=== PATIENT | female | born 1980 | race Caucasian/White ===

== ENCOUNTER 2020-08-13 12:52 | Outpatient (REF) | payer MEDICAID, SELFPAY | END 2020-08-13 12:53 | disposition home or self-care (01) | LOC: HO.LAB 12:52 | PROVIDERS: Visit Provider Internal Medicine | DX: Z20.822 Contact with and (suspected) exposure to COVID-19 (principal) | CPT/HCPCS: 36415; C9803; U0003; U0005 ==

== ENCOUNTER 2021-03-14 11:54 | Outpatient (REF) | payer MEDICAID, SELFPAY ==
[2021-03-14 12:29] LABS: COVID-19 Test Negative (Negative)
== END 2021-03-14 11:55 | disposition home or self-care (01) ==
LOC: HO.LAB 11:54
PROVIDERS: PCP Internal Medicine; Visit Provider Internal Medicine
DX: Z20.822 Contact with and (suspected) exposure to COVID-19 (principal)
CPT/HCPCS: 36415; 87635; C9803

== ENCOUNTER 2021-07-15 11:22 | Outpatient (REF) | payer MEDICAID, SELFPAY ==
[2021-07-15 13:25] LABS: Binax Internal Control QC Valid; Binax Lot number: 9864; Binax Now Covid-19 Ag Negative (Negative)
== END 2021-07-15 11:23 | disposition home or self-care (01) ==
LOC: HO.LAB 11:22
PROVIDERS: Visit Provider Internal Medicine
DX: Z20.822 Contact with and (suspected) exposure to COVID-19 (principal)
CPT/HCPCS: C9803

== ENCOUNTER 2022-02-23 23:14 | Emergency (ER) | payer MEDICAID, SELFPAY ==
--- NOTE | ~2022-02-23 | XR_ITS ---
EXAMINATION: XR FOOT, LEFT CLINICAL INFORMATION: Swelling and pain COMPARISON: None TECHNIQUE: AP, lateral, and oblique views of the left foot. FINDINGS: Osseous alignment is anatomic. No acute fracture is seen. Dorsal soft tissue swelling is noted overlying the metatarsals. XR/XR foot LT 2V IMPRESSION: Dorsal soft tissue swelling overlying the metatarsals. No acute osseous findings identified.
[2022-02-23 23:58] VITALS: BP 133/87; PULSE 65; RESP 16; TEMP 36.5; O2SAT 96; BMI 33.3
--- NOTE | 2022-02-24 01:24 | ED.LOWEXIN ---
HPI - Extremity Injury (Lower) General Chief Complaint: Extremity Injury, Lower Stated Complaint: foot inj/stubbed toe Time Seen by Provider: 02/24/22 01:20 Source: patient Mode of arrival: ambulatory Limitations: no limitations History of Present Illness HPI Narrative: 41-year-old female came in for evaluation of left foot injury. Patient dropped a chair on her left foot about 10 days ago, been complaining of left foot pain and swelling. Related Data Allergies Allergy/AdvReac Type Severity Reaction Status Date / Time No Known Allergies Allergy Unverified 03/18/20 17:09 [No Known Allergies*] Review of Systems Review of Systems: All other systems are reviewed and are negative Constitutional: Reports as per HPI and Reports no additional constitutional complaints Eyes: Reports as per HPI and Reports no additional eye complaints Reports system reviewed and no additional complaints, except as documented Cardiovascular: Reports as per HPI and Reports no additional cardiovascular complaints Respiratory: Reports as per HPI and Reports no additional respiratory complaints Gastrointestinal: Reports as per HPI and Reports no additional gastrointestinal complaints Genitourinary: Reports no additional female genitourinary complaints Musculoskeletal: Reports no additional musculoskeletal complaints Skin/Breast: Reports system reviewed and no additional complaints, except as docu Psychiatric: Reports no additional psychiatric complaints Endocrine: Reports no additional endocrine complaints Hematologic/Lymphatic: Reports no additional hematologic/lymphatic complaints Allergic/Immunologic: Reports no additional allergic/immunologic complaints Reports system reviewed and no additional complaints, except as documented and Reports Abnormal speech present [facility] Social History Social History Advance Directives: No Advance Directives Information Provided: No Physical Exam Vital Signs: Vital Signs: Last Vital Signs Temp 97.7 F 02/23/22 23:58 Pulse 65 02/23/22 23:58 Resp 16 02/23/22 23:58 BP 133/87 02/23/22 23:58 Pulse Ox 96 02/23/22 23:58 O2 Del Method 02/23/22 23:58 BMI result Body Mass Index 33.3 vital signs have been reviewed as appeared to be correct. Blood pressure normal. Heart rate normal. Respiration rate normal. Temperature normal. Oxygen saturation normal. Appearance: Alert. Oriented X3. No acute distress. Head: Normal external exam. Normocephalic. Atraumatic. No Alexis signs noted. No raccoon eyes noted Eyes: PERRLA. EOMI. Conjunctiva and sclera normal. Eyelids normal. ENT: TM's Normal. Pharynx normal. Uvula midline. Moist mucous membranes. No trismus noted. No drooling noted. No muffled voice noted. Neck: Normal inspection. Neck supple. FROM. No adenopathy. Thyroid Normal. No meningeal signs. No neck mass noted. CVS: Normal heart rate and rhythm. Heart sound normal. No murmurs noted. Pulses normal throughout. Respiratory: No respiratory distress. Painless inspiration. Breath sounds normal. No wheezes/rales/rhonchi noted. Chest nontender. No accessory muscle usage noted or decreased air movement noted. Abdomen: Soft and nontender. Bowel sounds normal in all 4 quadrants. No distention noted. No organomegaly noted. No visible injury noted. Back: No CVA tenderness. Full range of motion noted. Skin: Skin warm and dry. Normal skin color. Normal skin turgor. No rashes/lesions/lacerations noted. Extremities: No lower extremity edema. Left foot focal tenderness no step-off, no deformity. Neuro: Oriented X 3. Cranial nerve exam: II-XII are grossly intact No motor deficit. No sensory deficit. Reflexes normal. Course Course Course Narrative: Left foot contusion for 10 days. NSAIDs p.r.n. pain, elevation, rest. MDM - Extremity Injury (Lower) Imaging Data Left foot x-ray: Attestation: I personally reviewed and interpreted this imaging study as follows: Radiologist's impression: Dorsal soft tissue swelling overlying the metatarsals. No acute osseous findings identified. Discharge Plan Discharge Clinical Impression: Contusion of left foot Patient Disposition: Home, Self-Care Instructions: Contusion in Adults (ED) Additional Instructions: take ibuprofen 200 mg tablet every 6 hours if needed for pain ([id number] medication). Referrals: Rosa Do NP [Primary Care Provider] -
[2022-02-24 01:36] VITALS: BP 115/72; PULSE 66; RESP 14; O2SAT 97
--- NOTE | 2022-02-24 01:39 | PC.NURSE ---
pt a&o x3. reports 0 out of 10 pain at time of discharge. patient verbalize understanding of discharge plan. pt provided with discharge packet.
== END 2022-02-24 01:40 | disposition home or self-care (01) ==
PROVIDERS: Emergency Provider Emergency Medicine; PCP Nurse Practitioner Family
DX: S90.122A Contusion of left lesser toe(s) without damage to nail, initial encounter (principal); Y29.XXXA Contact with blunt object, undetermined intent, initial encounter; Y93.9 Activity, unspecified; Y92.9 Unspecified place or not applicable; Y99.9 Unspecified external cause status
CPT/HCPCS: 73620; 99283

== ENCOUNTER 2023-06-29 16:14 | Emergency (ER) | payer MEDICAID, SELFPAY ==
[2023-06-29 17:50] VITALS: BP 130/76; PULSE 68; RESP 16; TEMP 36; O2SAT 96; BMI 31.6
--- NOTE | 2023-06-29 17:50 | ED_ITS ---
HPI - General Adult General Chief complaint: Medical Clearance Stated complaint: Drug test Time Seen by Provider: 06/29/23 17:52 Source: patient Mode of arrival: ambulatory Limitations: no limitations History of Present Illness HPI narrative: Patient is a 42-year-old female presenting to the ED requesting urine drug screen. 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 Denies any physical complaints. complaint: requesting urine drug screen Associated symptoms: denies other symptoms Treatments prior to arrival: none Related Data Allergies Allergy/AdvReac Type Severity Reaction Status Date / Time No Known Allergies Allergy Verified 06/29/23 17:50 [No Known Allergies*] Review of Systems Review of Systems: As per HPI. Yes all other systems are reviewed and are negative Constitutional: Constitutional: Reports as per HPI [facility] Social History Social History Advance Directives: No Advance Directives Information Provided: No Physical Exam ED Vital Signs: Vital Signs - 24 hr 06/29/23 17:50 Temperature 96.8 F Pulse Rate 68 Respiratory Rate 16 Blood Pressure 130/76 Pulse Oximetry 96 Oxygen Delivery Method Room Air BMI result Body Mass Index 31.6 Vital signs have been reviewed and appear to be correct. Blood pressure normal. Heart rate normal. Respiratory rate normal. Temperature normal. Oxygen saturation normal. Const General: cooperative, healthy appearing and no acute distress Orientation/consciousness: oriented to person, oriented to place, oriented to time and patient oriented x3 Limitations: no limitations HENMT Head: Yes normocephalic and Yes atraumatic Ears: external ears normal General nose exam: Normal external nose present Face and sinus: Yes face symmetric Mouth: oropharynx normal and moist mucous membranes Throat: Yes uvula midline Eyes Pupils: Equal, round and reactive pupils present Neck Neck: Yes normal visual inspection and Yes supple Resp Effort & Inspection: normal respiratory effort and able to speak in complete sentences Auscultation: clear to auscultation bilaterally Cardio Rate: regular rate Rhythm: regular rhythm Heart sounds: S1 normal heart sound present and S2 normal heart sound present GI Palpation (GI): Soft to palpation and nontender Auscultation: normoactive bowel sounds General: Yes no CVA tenderness Back/Spine/Pelvis Back: no CVA tenderness Skin General skin exam: elasticity normal and turgor normal Neuro General: oriented to person, oriented to place, oriented to time, patient oriented x3, moves all extremities, no focal motor deficits and CN's II-XI intact bilaterally Cranial nerves: Yes Equal, round and reactive pupils present Cognition (Neuro): normal cognition Extrem General: Yes full ROM, Yes no pedal edema and Yes no calf tenderness Psych Mental Status: mental status grossly normal Affect: normal affect Thought process: Normal thought process present Medical Decision Making Medical Decision Making [facility] Narrative: Patient is a 42-year-old female presenting to the ED requesting urine drug screen. On exam patient is awake, A+Ox3, VS WNL, afebrile, normal neurological exam without focal deficits, physical exam findings as above. Urine drug screen obtained. Unwitnessed drug screen negative. Patient updated on results and discharged home. Differential Diagnosis Differential Diagnoses: The differential diagnosis associated with the presentation includes urine drug screen Lab Data [facility] Lab Attestation statement: I reviewed the patient's lab results. as per [facility] Labs: Lab Results 06/29/23 Range/Units 19:28 Urine Opiates Screen Not Detected (Not Detect) Urine Fentanyl Screen Not Detected (Not Detect) Ur Barbiturates Screen Not Detected (Not Detect) Ur Phencyclidine Scrn Not Detected (Not Detect) Ur Amphetamines Screen Not Detected (Not Detect) U Benzodiazepines Scrn Not Detected (Not Detect) Urine Cocaine Screen Not Detected (Not Detect) U Marijuana (THC) Screen Not Detected (Not Detect) External Record Review External record reviewed: Inpatient record, Office record and Outpatient record Discharge Plan Discharge Clinical Impression: Negative urine drug test Patient Disposition: Home, Self-Care Additional Instructions: You presented to the emergency department today requesting a urine drug screen. Your unwitnessed drug screen was negative.
[2023-06-29 19:54] LABS: Amphetamine Screen Urine Not Detected (Not Detect); Barbiturates, Urine Not Detected (Not Detect); Benzodiazepines Screen Urine Not Detected (Not Detect); Cannabinoid Screen Urine Not Detected (Not Detect); Cocaine Screen Urine Not Detected (Not Detect); Fentanyl, urine Not Detected (Not Detect); Opiate Screen Urine Not Detected (Not Detect); Phencyclidine Screen Urine Not Detected (Not Detect)
== END 2023-06-29 20:07 | disposition home or self-care (01) ==
PROVIDERS: Registered Nurse Emergency; Emergency Provider Emergency Medicine; PCP Nurse Practitioner Family
DX: Z02.83 Encounter for blood-alcohol and blood-drug test (principal); Z02.89 Encounter for other administrative examinations
CPT/HCPCS: 80307; 99282

== ENCOUNTER 2023-10-18 11:41 | Emergency (ER) | payer OTHER, SELFPAY ==
--- NOTE | 2023-10-18 12:05 | ED.GENADULT ---
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 Patient has no rash and no symptoms at this time. Requesting permethrin treatment. complaint: Scabies exposure Onset (ago): day(s) (2) Relieving factors: none Exacerbating factors: none Associated symptoms: denies other symptoms Treatments prior to arrival: none Related Data Previous Rx's ?Medication ?Instructions ?Recorded permethrin 5 % topical cream 1 appl topical Q14D 2 doses #60 10/18/23 grams Allergies Allergy/AdvReac Type Severity Reaction Status Date / Time No Known Allergies Allergy Verified 10/18/23 12:28 [No Known Allergies*] Review of Systems Review of Systems: Yes all other systems are reviewed and are negative PMFSH Social History Social History Advance Directives: No Physical Exam ED Vital Signs: Vital Signs - 24 hr 10/18/23 12:25 Temperature 98 F Pulse Rate 88 Respiratory Rate 18 Blood Pressure 109/68 Pulse Oximetry 98 Oxygen Delivery Method Room Air BMI result Body Mass Index 33.3 Appearance: Alert. Oriented X3. No acute distress. HEENT: normal inspection CVS: Normal heart rate and rhythm. Pulses normal. Respiratory: No respiratory distress. Skin: Skin warm and dry. Normal skin color. Normal skin turgor. No rashes. Extremities: normal inspection, no burrowing lesions Neuro: Oriented X 3. No motor deficit. No sensory deficit. 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 No current rashes. Requesting empiric treatment, permethrin sent to her pharmacy. Patient counseled on use. Stable for discharge. Differential Diagnosis Differential Diagnoses: The differential diagnosis associated with the presentation includes Scabies, scabies exposure, infestation of some other kind, lice Prescription Management I considered prescription management with: Other (Anti parasitic) Critical Care Time Critical Care Time Critical Care Time: No Discharge Plan Discharge Clinical Impression: Scabies exposure Patient Disposition: Home, Self-Care Instructions: Scabies (ED) Additional Instructions: use the prescription cream as prescribed follow up with your doctor as needed If you develop new or worsening symptoms call 911 or come back to the ER for further evaluation. Prescriptions: New permethrin 5 % cream 1 appl topical Q14D Qty: 60 0RF Rx Instructions: apply second treatment 14 days after first treatment if live lice remain Print Language: Romanian
[2023-10-18 12:25] VITALS: BP 109/68; PULSE 88; RESP 18; TEMP 36.6; O2SAT 98; BMI 33.3
[2023-10-18 13:01] VITALS: BP 109/68; PULSE 88; RESP 18; TEMP 36.6; O2SAT 98
== END 2023-10-18 13:02 | disposition home or self-care (01) ==
PROVIDERS: Emergency Provider Emergency Medicine
DX: Z20.7 Contact with and (suspected) exposure to pediculosis, acariasis and other infestations (principal)
CPT/HCPCS: 99282; 99283

== ENCOUNTER 2024-06-20 19:16 | Emergency (ER) | payer OTHER, SELFPAY ==
--- NOTE | ~2024-06-20 | XR_ITS ---
EXAMINATION: XR SOFT TISSUE NECK CLINICAL INDICATION: lateral, ? FB COMPARISON: None available. TECHNIQUE: 2 views of the soft tissue neck were obtained. FINDINGS: Soft tissue films of the neck demonstrate a normal larynx, pharynx and upper trachea. No soft tissue swelling or opaque foreign body is demonstrated. There is straightening of the normal cervical lordosis. XR/XR soft tissue neck IMPRESSION: Unremarkable examination. Specifically, no radiopaque foreign body visualized, as clinically queried. Electronically signed by: Nathalie Orlando MD 06/20/2024 09:59 PM EST RP
--- NOTE | ~2024-06-20 | XR_ITS ---
EXAMINATION: XR CHEST CLINICAL INFORMATION: pneumomediatinum? COMPARISON: April 09, 2019. TECHNIQUE: 2 views of the chest were obtained. FINDINGS: The cardiomediastinal silhouette is normal. There is no focal lung consolidation or pleural effusions. The bony structures and the soft tissues are unremarkable. XR/XR chest 2V IMPRESSION: No acute cardiopulmonary process. Electronically signed by: Telly Shepherd MD 06/21/2024 02:58 AM TIM
--- NOTE | 2024-06-20 19:23 | ED_ITS ---
HPI - General Adult General Chief complaint: Skin/Abscess/Foreign Body Stated complaint: swallowed glass in food Time Seen by Provider: 06/21/24 02:15 Source: patient Mode of arrival: ambulatory Limitations: no limitations History of Present Illness ED Provider: HPI narrative: Patient apparently had salad 2 days ago and while eating salad noticed glass piece in her mouth which she took it out but felt small pieces gone and swallowed patient has been to urgent care center advised to go to the hospital for further evaluation patient not spitting any blood able to swallow without any significant discomfort little anxious worried about the glass pieces swallowed but she did not swallow any big piece felt only grown pieces of glass Related Data Previous Rx's ?Medication ?Instructions ?Recorded permethrin 5 % topical cream 1 appl topical Q14D 2 doses #60 10/18/23 grams Allergies Allergy/AdvReac Type Severity Reaction Status Date / Time No Known Allergies Allergy Verified 06/20/24 19:28 [No Known Allergies*] Review of Systems Review of Systems: Yes all other systems are reviewed and are negative [facility] Social History Social History Advance Directives: No Advance Directives Information Provided: Yes Do you have a plan to hurt others: No Plan Physical Exam ED Vital Signs: Vital Signs - 24 hr 06/20/24 19:24 06/21/24 00:00 06/21/24 02:00 Temperature 98.5 F 98.6 F 98.7 F Pulse Rate 104 H 84 86 Respiratory Rate 16 18 18 Blood Pressure 130/79 119/78 137/74 Pulse Oximetry 97 95 96 Oxygen Delivery Method Room Air Room Air Room Air 06/21/24 04:05 Temperature 98.7 F Pulse Rate 86 Respiratory Rate 18 Blood Pressure 137/74 Pulse Oximetry 96 Oxygen Delivery Method Room Air BMI result Body Mass Index 35.2 Appearance: Alert. Oriented X3. No acute distress. Eyes: PERRLA, No Nystagmus ENT: Pharynx normal. Oral Mucosa moist Neck: Normal inspection. Neck supple. CVS: Normal heart rate and rhythm. Pulses normal. Respiratory: No respiratory distress. Equal air entry bilateral, no wheezing/rales/rhonchi Abdomen: Soft and nontender. Bowel sounds are present, no mass palpable, no CVA tenderness Skin: Skin warm and dry. Normal skin color. Normal skin turgor. Extremities: No lower extremity edema. No calf tenderness Neuro: Oriented X 3. No motor deficit. Course Course Course Narrative: This is a rapid medical exam performed by Shefali Lr NP: Additional HPI, ROS, PE not included below will be deferred to primary provider. Patient is a 43-year-old female presenting to the ED stating that she was eating salad at [employer] last night when she noted something hard, spit it out and it was clear glass. Now feeling heartburn and sore throat. Denies spitting up any blood. Reports foreign body sensation in throat. Managing secretions in triage without difficulty. Medications Administered Discontinued Medications Generic Name Dose Route Start Last Admin Trade Name Freq PRN Reason Stop Dose Admin Al Hydroxide/Mg Hydroxide 30 ml 06/21/24 02:43 06/21/24 04:01 Magnesium Hydrox/Alum Hydrox 30 Ml Oral.Susp PO 06/21/24 02:44 30 ml ONCE ONE Administration Medical Decision Making Medical Decision Making [facility] Narrative: Patient will incidental swallow of the crushed glass likely without significant pain no vomiting able to swallow with a significant distress chest x-ray negative for pneumomediastinum likely patient has minor irritation to her esophagus from the glass pieces will discharge patient home patient has been eating normally Radiology Impression Discussion of test interpretation with radiology: I have reviewed the radiologist's reading. Radiologist Impression: Negative chest x-ray negative and neck x-ray Discharge Plan Discharge Clinical Impression: Foreign body alimentary tract Patient Disposition: Home, Self-Care Instructions: Esophageal Foreign Body (ED) Additional Instructions: Your irritation of the throat and in the chest is likely from swallowed small glass pieces at this time there is no evidence of significant injury to your esophagus Prescriptions: No Action permethrin 5 % cream 1 appl topical Q14D Qty: 60 0RF Rx Instructions: apply second treatment 14 days after first treatment if live lice remain Interventions: ED Discharge Assessment Last Done: 06/21/24 04:05 Discharge Date/Time: 06/21/24 04:07 Print Language: Divehi
[2024-06-20 19:24] VITALS: BP 130/79; PULSE 104; RESP 16; TEMP 36.9; O2SAT 97; BMI 35.2
[2024-06-21] VITALS: BP 119/78; PULSE 84; RESP 18; TEMP 37; O2SAT 95
[2024-06-21 02:00] VITALS: BP 137/74; PULSE 86; RESP 18; TEMP 37.1; O2SAT 96
[2024-06-21] MEDS: Magnesium Hydrox/Alum Hydrox 30 ML ORAL.SUSP PO (04:01)
[2024-06-21 04:05] VITALS: BP 137/74; PULSE 86; RESP 18; TEMP 37.1; O2SAT 96
== END 2024-06-21 04:07 | disposition home or self-care (01) ==
PROVIDERS: Emergency Provider Internal Medicine; PCP Internal Medicine
DX: T18.9XXA Foreign body of alimentary tract, part unspecified, initial encounter (principal); W44.C0XA Glass unspecified, entering into or through a natural orifice, initial encounter; Y93.9 Activity, unspecified; Y92.9 Unspecified place or not applicable; Y99.9 Unspecified external cause status
CPT/HCPCS: 70360; 71046; 99283